=== PATIENT | male | born 1975 | race Caucasian/White ===

== ENCOUNTER 2018-04-22 18:49 | Emergency (ER) | payer MEDICAID ==
[~2018-04-22] VITALS: Ht 195.6 cm; Wt 81.8 kg
[2018-04-22 18:53] VITALS: BP 116/79
[2018-04-22] MEDS ORDERED: NICO-631 TD (21:36)
== END 2018-04-22 22:01 | disposition home or self-care (01) ==
LOC: ER 18:50
DX: Z02.89 Encounter for other administrative examinations (principal); F12.90 Cannabis use, unspecified, uncomplicated; F15.90 Other stimulant use, unspecified, uncomplicated; F17.200 Nicotine dependence, unspecified, uncomplicated; Z90.49 Acquired absence of other specified parts of digestive tract; Z79.899 Other long term (current) drug therapy; Z56.0 Unemployment, unspecified
CPT/HCPCS: 99282

== ENCOUNTER 2022-01-14 18:02 | Emergency (ER) | payer MEDICAID ==
[~2022-01-14] VITALS: Ht 195.6 cm; Wt 86.4 kg
[2022-01-14 18:38] VITALS: BP 121/81
== END 2022-01-14 19:30 | disposition home or self-care (01) ==
LOC: ER 19:15
DX: H65.91 Unspecified nonsuppurative otitis media, right ear (principal); F12.10 Cannabis abuse, uncomplicated; F15.10 Other stimulant abuse, uncomplicated; Z56.0 Unemployment, unspecified
CPT/HCPCS: 99282

== ENCOUNTER 2023-12-05 13:24 | Emergency (ER) | payer MEDICAID ==
[~2023-12-05] VITALS: Ht 193 cm; Wt 81.6 kg
[2023-12-05 13:37] VITALS: BP 130/67; PULSE 106; RESP 16; TEMP 98; O2SAT 98
== END 2023-12-05 16:28 | disposition home or self-care (01) ==
LOC: ER 13:25
DX: Z00.00 Encounter for general adult medical examination without abnormal findings (principal); F12.90 Cannabis use, unspecified, uncomplicated; F15.90 Other stimulant use, unspecified, uncomplicated; Z98.890 Other specified postprocedural states
CPT/HCPCS: 99281